=== PATIENT | female | born 1960 | race Caucasian/White ===

== ENCOUNTER → 2021-10-19 07:55 | Outpatient (CLI) | payer BC, SELFPAY ==
[2021-10-19 09:12] LABS: Hemoglobin A1C% w Est Avg Glu 5.7 % (4.0-6.0)
[2021-10-19 09:28] LABS: Alanine Aminotransferase 28 IU/L (<35); Albumin 4.7 g/dL (3.5-5.0); Albumin Globulin Ratio 1.8 (1.0-2.8); Alkaline Phosphatase 52 U/L (38-126); Aspartate Aminotransferase 29 IU/L (14-36); BUN Creatinine Ratio 21.7 (6-22); Bilirubin Total 0.6 mg/dL (0.2-1.3); Blood Urea Nitrogen 13 mg/dL (7-17); Calcium 9.6 mg/dL (8.4-10.2); Carbon Dioxide 30 mmol/L (22-32); Chloride 104 mmol/L (98-107); Cholesterol 222 mg/dL (140-199); Estimated Glomerular Filt Rate > 60.0 mL/min (>60); Globulin 2.6 g/dL (1.7-4.1); Glucose 103 mg/dL (80-110); HDL Cholesterol 65 mg/dL (40-60); HEMOLYSIS < 15 (0-50); LDL Cholesterol Calculated 127 mg/dL (<100); Potassium 4.2 mmol/L (3.4-5.1); Sodium 136 mmol/L (137-145); Total Protein 7.3 g/dL (6.3-8.2); Triglycerides 150 mg/dL (35-150)
[2021-10-19 09:42] LABS: Free T3, Triiodothyronine Free 2.87 pg/mL (2.77-5.27); Free T4, Direct Thyroxine 1.32 ng/dL (0.78-2.19)
[2021-10-19 09:56] LABS: Thyroid Stimulating Hormone 1.11 uIU/mL (0.47-4.68)
== END ==
PROVIDERS: PCP Naturopath; Referring Provider Naturopath; Visit Provider Naturopath
DX: Z00.00 Encounter for general adult medical examination without abnormal findings (principal); E78.5 Hyperlipidemia, unspecified; E03.9 Hypothyroidism, unspecified
CPT/HCPCS: 36415; 80053; 80061; 83036; 84439; 84443; 84481

== ENCOUNTER → 2022-03-13 10:00 | Outpatient (CLI) | payer BC, SELFPAY ==
--- NOTE | 2022-03-13 | DI.RAD.S_ITS ---
PROCEDURE: XR ABDOMEN 1V INDICATIONS: sitz marker study TECHNIQUE: The patient was given a Sitzmark capsule by the orthopedic radiologic technologist on the date of 03/08/2022 and was instructed to swallow the capsule on the day it was given. Patient returned 5 days later for followup imaging. Supine 1 view abdomen radiograph acquired. COMPARISON: None. FINDINGS: Surgical changes and devices: None. Bowel: There are 8 out of 24 Sitzmark rings remaining within the colon, primarily seen distally. Bowel gas pattern is normal. A moderate amount of stool is seen within the colon. Soft tissues: No suspicious abdominal calcifications. Visualized solid organ contours appear normal in size. Pelvic phleboliths are incidentally noted. Bones: No suspicious bony lesions. IMPRESSION: 8 of the markers remain. This is diagnostic of abnormally slow colonic motility. There is a moderate amount of stool seen within the colon, which is consistent with constipation. Dictated by: Taye Finnegan M.D. on 03/14/2022 at 15:42 Approved by: Taye Fninegan M.D. on 03/14/2022 at 15:43
== END ==
PROVIDERS: PCP Naturopath; Referring Provider Internal Medicine Gastroenterology; Visit Provider Internal Medicine Gastroenterology
DX: Z13.811 Encounter for screening for lower gastrointestinal disorder (principal)
CPT/HCPCS: 74018

== ENCOUNTER → 2022-04-29 07:40 | Outpatient (CLI) | payer BC, SELFPAY ==
[2022-04-29 08:13] LABS: Hemoglobin A1C% w Est Avg Glu 5.8 % (4.0-6.0)
[2022-04-29 08:47] LABS: Cholesterol 258 mg/dL (140-199); HDL Cholesterol 59 mg/dL (40-60); LDL Cholesterol Calculated 169 mg/dL (<100); Triglycerides 150 mg/dL (35-150)
[2022-04-29 09:01] LABS: Free T4, Direct Thyroxine 1.08 ng/dL (0.78-2.19)
[2022-04-29 09:14] LABS: Thyroid Stimulating Hormone 0.281 uIU/mL (0.47-4.68)
== END ==
PROVIDERS: PCP Naturopath; Referring Provider Naturopath; Visit Provider Naturopath
DX: E03.9 Hypothyroidism, unspecified (principal); E78.5 Hyperlipidemia, unspecified
CPT/HCPCS: 36415; 80061; 83036; 84439; 84443

== ENCOUNTER → 2022-08-31 07:55 | Outpatient (CLI) | payer BC, SELFPAY ==
[2022-08-31 09:20] LABS: Add Manual Diff / Slide Review NO; Basophils Absolute Auto 0 /uL (0-100); Basophils Percent Auto 1.1 % (0-2); Eosinophils Absolute Auto 100 /uL (0-450); Hematocrit 41.6 % (36-46); Hemoglobin A1C% w Est Avg Glu 5.7 % (4.0-6.0); Lymphocytes Absolute Auto 1900 /uL (1100-4500); Lymphocytes Percent Auto 47.5 % (25-40); Mean Corpuscular HGB Conc 33.5 % (30-36); Mean Corpuscular Hemoglobin 31.6 PG (26-34); Mean Corpuscular Volume 94.2 fL (80-100); Monocytes Absolute Auto 300 /uL (0-900); Monocytes Percent Auto 7.4 % (3-14); Neutrophils Absolute Auto 1700 /uL (1500-7000); Platelet Count 303 X10^3/uL (150-400); Red Blood Cell Count 4.42 X10^6/uL (4.0-5.2); Red Cell Distribution Width 12.8 % (11.6-14.8)
[2022-08-31 09:26] LABS: Alanine Aminotransferase 32 IU/L (<35); Albumin 4.7 g/dL (3.5-5.0); Albumin Globulin Ratio 1.5 (1.0-2.8); Alkaline Phosphatase 49 U/L (38-126); Aspartate Aminotransferase 32 IU/L (14-36); BUN Creatinine Ratio 30.9 (6-22); Bilirubin Total 0.9 mg/dL (0.2-1.3); Blood Urea Nitrogen 17 mg/dL (7-17); Calcium 9.3 mg/dL (8.4-10.2); Carbon Dioxide 27 mmol/L (22-32); Chloride 103 mmol/L (98-107); Cholesterol 262 mg/dL (140-199); Estimated Glomerular Filt Rate > 60 mL/min (>60); Globulin 3.1 g/dL (1.7-4.1); Glucose 102 mg/dL (80-110); HDL Cholesterol 75 mg/dL (40-60); HEMOLYSIS < 15 (0-50); LDL Cholesterol Calculated 152 mg/dL (<100); Potassium 4.1 mmol/L (3.4-5.1); Sodium 139 mmol/L (137-145); Total Protein 7.8 g/dL (6.3-8.2); Triglycerides 177 mg/dL (35-150)
[2022-08-31 09:46] LABS: Free T3, Triiodothyronine Free 3.76 pg/mL (2.77-5.27); Free T4, Direct Thyroxine 1.51 ng/dL (0.78-2.19)
[2022-08-31 09:59] LABS: Thyroid Stimulating Hormone 0.272 uIU/mL (0.47-4.68)
== END ==
PROVIDERS: PCP Naturopath; Referring Provider Naturopath; Visit Provider Naturopath
DX: Z00.00 Encounter for general adult medical examination without abnormal findings; E03.9 Hypothyroidism, unspecified; E78.5 Hyperlipidemia, unspecified
CPT/HCPCS: 36415; 80053; 80061; 83036; 84439; 84443; 84481; 85025

== ENCOUNTER → 2022-09-14 11:26 | Outpatient (CLI) | payer BC, SELFPAY ==
--- NOTE | 2022-09-14 | DI.MG.S_ITS ---
BILATERAL DIGITAL SCREENING MAMMOGRAM 3D/2D WITH CAD: 09/14/2022 CLINICAL: Routine screening. Comparison is made to exam dated: 11/07/2020 mammogram - outside location. Both breasts are heterogeneously dense, which may obscure small masses (category c / 51-75% glandular tissue). Current study was also evaluated with a Computer Aided Detection (CAD) system. There are benign calcifications in the left breast. No significant masses, calcifications, or other findings are seen in either breast. There has been no significant interval change. IMPRESSION: BENIGN There is no mammographic evidence of malignancy. A 1 year screening mammogram is recommended. Based on the Tyrer Cuzick model (a risk assessment model) the patient's lifetime risk is 10.7% and her 10 year risk is 4.7%. According to the ACR, ACS, and NCCN guidelines, an annual breast MRI exam along with mammogram is recommended if the patient's lifetime risk is 20% or greater. This exam was interpreted at Station ID: [id number]. NOTE: For mammograms, a report in lay terms will be sent to the patient. Approximately 15% of breast malignancies will not be visualized mammographically. In the management of a palpable breast mass, a negative mammogram must not discourage biopsy of a clinically suspicious lesion. Electronically Signed By: Fortunato marley/irina:09/14/2022 18:52:57 letter sent: Normal Exam ACR BI-RADS Category 2: Benign Finding(s) 3342F
== END ==
PROVIDERS: PCP Naturopath; Referring Provider Naturopath; Visit Provider Naturopath
DX: Z12.31 Encounter for screening mammogram for malignant neoplasm of breast (principal)
CPT/HCPCS: 77063; 77067

== ENCOUNTER → 2022-12-06 12:16 | Outpatient (CLI) | payer OTHER, SELFPAY ==
[2022-12-06 14:56] LABS: Free T3, Triiodothyronine Free 4.11 pg/mL (2.77-5.27)
[2022-12-06 15:10] LABS: Thyroid Stimulating Hormone 0.527 uIU/mL (0.47-4.68)
== END ==
PROVIDERS: PCP Naturopath; Referring Provider Naturopath; Visit Provider Naturopath
DX: E03.9 Hypothyroidism, unspecified (principal)
CPT/HCPCS: 36415; 84439; 84443; 84481

== ENCOUNTER 2023-07-25 06:55 | Day surgery (SDC) | payer OTHER, SELFPAY ==
[2023-07-25] MEDS: LACTATED RINGERS 1,000 ML 120 ML IV (07:13)
[2023-07-25 07:19] VITALS: BP 114/78; PULSE 79; RESP 18; TEMP 36.3; O2SAT 95; BMI 22.7
--- NOTE | 2023-07-25 07:58 | P.HP_ITS ---
History of Present Illness History of Present Illness Date Patient Seen: 07/25/23 Time Patient Seen: 07:59 Chief complaint: Colonoscopy Narrative: Here for colonoscopy. Family history colon cancer in 2 second-degree relatives. [facility], [facility] Social History household members: spouse Smoking Status: Former smoker Meds Home Medications and Allergies Home Medications Medication Instructions Recorded Confirmed Type estradiol 0.05 mg/24 hr weekly 1 patch transdermal WEEKLY 07/25/23 07/25/23 History transdermal patch levothyroxine 100 mcg tablet 100 mcg PO DAILY 07/25/23 07/25/23 History (Synthroid) Allergies Allergy/AdvReac Type Severity Reaction Status Date / Time Penicillins Allergy Intermediate Hives Verified 07/25/23 07:14 vicryl stitches Allergy Redness of Uncoded 07/25/23 07:15 Skin Review of Systems Review of Systems ROS: Yes All systems reviewed with the patient and are negative except as otherwise documented Exam Vital Signs (past 8 hours): - 07/25/23 07:19 Temperature 97.3 F L Pulse Rate 79 Respiratory Rate 18 Blood Pressure 114/78 Pulse Oximetry 95 Oxygen Delivery Method Room Air Oxygen Delivery Method Room Air Const General: cooperative HENMT Head: normal to inspection Eyes General: appearance normal, both eyes and all related structures Neck Neck: normal visual inspection Chest Chest: normal inspection of the chest Resp Effort & Inspection: normal respiratory effort Cardio Rate: regular rate GI Inspection: normal to inspection Skin General: no rashes or lesions noted Neuro General: patient alert and patient awake Extrem General: normal to inspection and no pedal edema Psych Appearance: grossly normal Assessment & Plan Assessment & Plan narrative: 62-year-old female with chronic constipation and a family history of colon cancer. Colonoscopy is pursued today.
--- NOTE | 2023-07-25 07:59 | PM.PREOP ---
Pre-operative Note Interval Note History & Physical reviewed/Exam performed by Physician: Yes Changes to H&P: No ASA Class (for procedural sedation): II
--- NOTE | 2023-07-25 08:23 | SUR.OPER ---
PEDIATRIC SCOPE TRIED.. SWITCHED TO REGULAR
--- NOTE | 2023-07-25 08:33 | PM.OP.COLON ---
Operative Date/Time/Diagnoses Date of procedure: 07/25/23 Time of procedure: 08:34 Pre-op diagnosis: Family history of colon cancer in a couple of second-degree relatives. Severe constipation. Post-op diagnosis: same Procedure & Clinicians Study performed: Incomplete colonoscopy Same procedure as scheduled: No Indications: Family history of colon cancer and personal history of constipation Surgeon: Victor Manuel Jennings Procedure Notes SCOAP/Timeout: Done Procedure in detail: After the risks and benefits were explained, written and verbal informed consent was obtained. The patient was brought into the procedure room and placed into the left lateral decubitus position. Please see anesthesia note for sedation details. Digital rectal examination was accomplished. The scope was introduced into the patient and advanced under direct visualization to the transverse colon. This depth however was not a certainty. The patient had an exceedingly redundant and tortuous colon. At times I had proximal 100 cm of scope inserted. Despite patient position changes, pressure, and swapping out the pediatric scope for an adult colonoscope we could not overcome this to obtain a depth of cecum. The scope was therefore withdrawn to evaluate the left colon. Comprehensive imaging was accomplished throughout the rectum including the dentate line. The colon was decompressed, the scope was then removed from the patient who tolerated the procedure well. Pediatric and adult colonoscope Bowel prep adequate Scope withdrawal time: Not applicable Sedation minutes: 31 Specimen(s): none sent Complications: none Impression: The patient had an exceedingly redundant and tortuous colon. We could not overcome the looping and redundancy despite pressure, stiffening ke, position change, and a scope change as above. I suspect I was somewhere in the transverse colon. I did not appreciate any overt pathology in the left colon. Endoscopic diagnosis 1. Severe colon redundancy 2. Tortuous colon 3. Incomplete colonoscopy Post-procedure Plan for aftercare: 1. I will touch base with the office staff and try to arrange for a virtual colonography 2. Contingent on the findings, future screening should probably be with balloon assisted colonoscopy versus virtual colonoscopy. Disposition: PACU
[2023-07-25 08:34] VITALS: BP 103/72; PULSE 77; RESP 12; TEMP 36.2; O2SAT 95
[2023-07-25 08:39] VITALS: BP 106/79; PULSE 70; RESP 15; O2SAT 97
[2023-07-25 08:44] VITALS: BP 116/82; PULSE 66; RESP 12; TEMP 36.1; O2SAT 97
[2023-07-25 08:57] VITALS: BP 108/71; PULSE 67; RESP 11; TEMP 36.2; O2SAT 99
== END 2023-07-25 09:12 | disposition home or self-care (01) ==
PROVIDERS: PCP Naturopath; Referring Provider Internal Medicine Gastroenterology; Visit Provider Internal Medicine Gastroenterology
PROC: 0DJD8ZZ Inspection of Lower Intestinal Tract, Via Natural or Artificial Opening Endoscopic (ICD-10-PCS; CPT 45378; principal; 2023-07-25 08:00)
DX: K59.00 Constipation, unspecified (principal); Z53.09 Procedure and treatment not carried out because of other contraindication
CPT/HCPCS: 45378; J2704

== ENCOUNTER → 2023-09-13 08:59 | Outpatient (CLI) | payer OTHER, SELFPAY ==
[2023-09-13 10:30] LABS: Add Manual Diff / Slide Review NO; Basophils Absolute Auto 0 /uL (0-100); Basophils Percent Auto 0.8 % (0-2); Eosinophils Absolute Auto 100 /uL (0-450); Eosinophils Percent Auto 1.6 % (2-4); Hemoglobin 13.8 g/dL (12.0-16.0); Lymphocytes Absolute Auto 1900 /uL (1100-4500); Lymphocytes Percent Auto 42.6 % (25-40); Mean Corpuscular HGB Conc 33.6 % (30-36); Mean Corpuscular Volume 92.5 fL (80-100); Monocytes Absolute Auto 400 /uL (0-900); Monocytes Percent Auto 8.2 % (3-14); Neutrophils Absolute Auto 2100 /uL (1500-7000); Neutrophils Percent Auto 46.8 % (50-75); Platelet Count 285 X10^3/uL (150-400); Red Blood Cell Count 4.44 X10^6/uL (4.0-5.2); Red Cell Distribution Width 13.2 % (11.6-14.8); White Blood Cell Count 4.5 X10^3/uL (4.5-11.0)
[2023-09-13 10:43] LABS: Alanine Aminotransferase 25 IU/L (<35); Albumin 4.4 g/dL (3.5-5.0); Albumin Globulin Ratio 1.6 (1.0-2.8); Alkaline Phosphatase 59 U/L (38-126); Aspartate Aminotransferase 28 IU/L (14-36); Blood Urea Nitrogen 16 mg/dL (7-17); Calcium 9.7 mg/dL (8.4-10.2); Carbon Dioxide 28 mmol/L (22-32); Chloride 100 mmol/L (98-107); Cholesterol 274 mg/dL (140-199); Estimated Glomerular Filt Rate > 60 mL/min (>60); Globulin 2.8 g/dL (1.7-4.1); Glucose 95 mg/dL (80-110); HDL Cholesterol 79 mg/dL (40-60); HEMOLYSIS < 15 (0-50); LDL Cholesterol Calculated 167 mg/dL (<100); Potassium 4.2 mmol/L (3.4-5.1); Sodium 136 mmol/L (137-145); Total Protein 7.2 g/dL (6.3-8.2); Triglycerides 142 mg/dL (35-150)
[2023-09-13 10:44] LABS: Hemoglobin A1C% w Est Avg Glu 5.7 % (4.0-6.0)
[2023-09-13 11:18] LABS: Thyroid Stimulating Hormone 0.824 uIU/mL (0.47-4.68)
[2023-09-13 11:34] LABS: Free T3, Triiodothyronine Free 3.31 pg/mL (2.77-5.27); Free T4, Direct Thyroxine 1.35 ng/dL (0.78-2.19)
== END ==
PROVIDERS: PCP Naturopath; Referring Provider Naturopath; Visit Provider Naturopath
DX: Z00.00 Encounter for general adult medical examination without abnormal findings (principal); E03.9 Hypothyroidism, unspecified; E78.5 Hyperlipidemia, unspecified
CPT/HCPCS: 36415; 80053; 80061; 83036; 84439; 84443; 84481; 85025

== ENCOUNTER → 2023-09-22 | Outpatient (CLI) | payer OTHER, SELFPAY ==
--- NOTE | 2023-09-22 15:02 | DI.MG.S_ITS ---
BILATERAL DIGITAL SCREENING MAMMOGRAM 3D/2D WITH CAD: 09/22/2023 CLINICAL: Routine screening. Comparison is made to exams dated: 09/14/2022 mammogram - [facility] and 11/07/2020 mammogram - outside location. Both breasts are heterogeneously dense, which may obscure small masses (category c / 51-75% glandular tissue). Current study was also evaluated with a Computer Aided Detection (CAD) system. No significant masses, calcifications, or other findings are seen in either breast. IMPRESSION: NEGATIVE There is no mammographic evidence of malignancy. A 1 year screening mammogram is recommended. Based on the Tyrer Cuzick model (a risk assessment model) the patient's lifetime risk is 10.4% and her 10 year risk is 4.7%. According to the ACR, ACS, and NCCN guidelines, an annual breast MRI exam along with mammogram is recommended if the patient's lifetime risk is 20% or greater. This exam was interpreted at Station ID: [id number]. NOTE: For mammograms, a report in lay terms will be sent to the patient. Approximately 15% of breast malignancies will not be visualized mammographically. In the management of a palpable breast mass, a negative mammogram must not discourage biopsy of a clinically suspicious lesion. Electronically Signed By: Xochitl Quinones M.D., PH.D eb/:09/23/2023 22:59:35 letter sent: Normal Exam ACR BI-RADS Category 1: Negative 3341F
== END ==
PROVIDERS: PCP Naturopath; Referring Provider Naturopath; Visit Provider Naturopath
DX: Z12.31 Encounter for screening mammogram for malignant neoplasm of breast (principal); R92.333 Mammographic heterogeneous density, bilateral breasts
CPT/HCPCS: 77063; 77067

== ENCOUNTER → 2024-03-14 11:33 | Outpatient (CLI) | payer OTHER, SELFPAY ==
--- NOTE | 2024-03-14 11:36 | DI.RAD.S_ITS ---
PROCEDURE: XR CHEST 2V INDICATIONS: ABNORMAL FINDINGS TECHNIQUE: 2 views of the chest were acquired. COMPARISON: None. FINDINGS: Surgical changes and devices: Clips are seen within the neck. Lungs and pleura: Bibasilar atelectasis. No pleural effusions or pneumothorax. Mediastinum: Mediastinal contours are normal. Heart size is normal. Bones and chest wall: No suspicious bony abnormalities. IMPRESSION: Bibasilar atelectasis. Dictated by: Tadeo Hewitt M.D. on 03/14/2024 at 17:15 Approved by: Tadeo Hewitt M.D. on 03/14/2024 at 17:18
== END ==
PROVIDERS: PCP Naturopath; Referring Provider Naturopath; Visit Provider Naturopath
DX: J98.11 Atelectasis (principal); R93.89 Abnormal findings on diagnostic imaging of other specified body structures
CPT/HCPCS: 71046

== ENCOUNTER → 2024-08-01 08:00 | Outpatient (CLI) | payer OTHER, SELFPAY ==
[2024-08-01 10:15] LABS: Cholesterol 238 mg/dL (140-199); HDL Cholesterol 88 mg/dL (40-60); LDL Cholesterol Calculated 125 mg/dL (<100); Triglycerides 127 mg/dL (35-150)
== END ==
PROVIDERS: PCP Naturopath; Referring Provider Internal Medicine Cardiovascular Disease; Visit Provider Internal Medicine Cardiovascular Disease
DX: E78.5 Hyperlipidemia, unspecified (principal)
CPT/HCPCS: 36415; 80061

== ENCOUNTER → 2024-08-24 16:09 | Outpatient (CLI) | payer OTHER, SELFPAY ==
--- NOTE | 2024-08-24 16:10 | DI.ECHO.S_ITS ---
[facility]+ [facility] : : [address] : : [place] : : [id number] : : Phone: [phone] Echocardiogram Report + + :Name: ANAIS WHITTAKER Study Date: 08/24/2024 Height: 67 in : :Hospital ReadingLocation: Weight: 138 lb : : Gender: Female BSA: 1.7 m2 : :: 1960 Age: 63 yrs BP: 111/77 mmHg: :Reason For Study: ATRIAL FIBRILLATION : :Ordering Physician: ÁNGEL, : :BRYAN Performed By: Ranjit Still : :Referring: BRYAN ALMENDAREZ : + + Interpretation Summary 1) Normal left ventricular thickness, size, wall motion, and systolic function (EF 55-60%). 2) Normal right ventricular size and function. 3) No significant valvular abnormalities. 4) No prior Echo available for comparison. Procedure: A two-dimensional transthoracic echocardiogram with color flow and Doppler was performed. The study quality was technically good. There is no prior echocardiogram noted for this patient. The patient was in normal sinus rhythm during the exam. Left Ventricle: The left ventricle is normal in size. There is normal left ventricular wall thickness. There is no ventricular septal defect visualized. The ejection fraction is estimated to be 55-60%. There are no focal wall motion abnormalities. Right Ventricle: The right ventricle is normal in size and function. Atria: The left atrial size is normal. Right atrial size is normal. There is no Doppler evidence for an interatrial shunt. Mitral Valve: The mitral valve leaflets appear normal. There is no evidence of stenosis, fluttering, or prolapse. There is trace mitral regurgitation. Aortic Valve: The aortic valve is trileaflet. The aortic valve opens well. The aortic valve is mildly calcified. There is no aortic valve stenosis. No aortic regurgitation is present. Tricuspid Valve: The tricuspid valve leaflets are thin and pliable. There is mild tricuspid regurgitation. The right ventricular systolic pressure is estimated to be at least 34 mmHg based on an estimated right atrial pressure of 8 mm Hg. Pulmonic Valve: The pulmonic valve leaflets are thin and pliable; valve motion is normal. There is no pulmonic valvular regurgitation. Great Vessels: The aortic root is normal size. The dimensions of the ascending aorta are normal. The pulmonary artery is normal size. The IVC is dilated (diameter is greater than 2.1 cm) yet it collapses greater than 50% with a sniff. This suggests a right atrial pressure of 8 mm Hg. Pericardium/ Pleura There is no pericardial effusion. There is no pleural effusion. MMode/2D Measurements & Calculations LVIDd: 4.6 cm LVOT diam: 2.0 cm LVIDs: 2.4 cm Ao root diam: 2.9 cm FS: 48.0 % asc Aorta Diam: 3.1 cm EPSS: 0.35 cm IVSd: 0.71 cm LVPWd: 0.76 cm LV dominguez. diameter/BSA (cm/m^2): 2.7 LV sys. diameter/BSA (cm/m^2): 1.4 LA A2 area: 16.8 cm2 RA long axis: 4.3 cm LA A4 area: 16.1 cm2 RA area: 14.1 cm2 LA length (vol): 5.0 cm RA vol: 38.7 ml LA vol: 45.6 ml RA : 22.4 ml/m2 LA vol index: 26.4 ml/m2 IVC diam: 2.3 cm RVD1 (basal): 3.5 cm RVD2 (mid): 2.6 cm TAPSE: 2.7 cm Doppler Measurements & Calculations Ao V2 max: 117.4 cm/sec LVOT Max Dagoberto: 76.4 cm/sec Ao V2 mean: 91.9 cm/sec LV V1 max P.3 mmHg Ao max P.5 mmHg LV V1 VTI: 17.7 cm Ao mean P.5 mmHg RABIA(I,D): 2.1 cm2 Ao V2 VTI: 27.3 cm RABIA(V,D): 2.1 cm2 sev ratio: 0.65 RABIA indexed to BSA (cm^2/m^2): 1.2 MV E max dagoberto: 65.4 cm/sec TR max dagoberto: 253.6 cm/sec MV A max dagoberto: 52.3 cm/sec TR max P.7 mmHg MV E/A: 1.2 PA V2 max: 64.7 cm/sec Med Peak E' Dagoberto: 9.1 cm/sec PA V2 mean: 44.8 cm/sec E/E' med: 7.2 PA mean P.89 mmHg Lat Peak E' Dagoberto: 10.8 cm/sec PA pr(Accel): 32.8 mmHg E/E' lat: 6.1 E/e' average: 6.6 MV dec time: 0.24 sec SV(LVOT): 57.8 ml Reading Physician:05:29 PM
== END ==
PROVIDERS: PCP Naturopath; Referring Provider Internal Medicine Cardiovascular Disease; Visit Provider Internal Medicine Cardiovascular Disease
DX: I48.0 Paroxysmal atrial fibrillation (principal); I07.1 Rheumatic tricuspid insufficiency
CPT/HCPCS: 93306

== ENCOUNTER → 2024-09-27 10:12 | Outpatient (CLI) | payer OTHER, SELFPAY | PROVIDERS: PCP Family Medicine; Referring Provider Family Medicine; Visit Provider Family Medicine | DX: I48.91 Unspecified atrial fibrillation (principal) | CPT/HCPCS: 36415; 83695 ==

== ENCOUNTER → 2024-10-01 13:13 | Outpatient (CLI) | payer OTHER, SELFPAY ==
--- NOTE | 2024-10-01 13:14 | DI.MG.S_ITS ---
BILATERAL DIGITAL SCREENING MAMMOGRAM 3D/2D WITH CAD: 10/01/2024 CLINICAL: Routine screening. Comparison is made to exams dated: 09/22/2023 mammogram, 09/14/2022 mammogram - [facility], and 11/07/2020 mammogram - outside location. The breasts are heterogeneously dense, which may obscure small masses (category c / 51-75% glandular tissue). Current study was also evaluated with a Computer Aided Detection (CAD) system. No significant masses, calcifications, or other findings are seen in either breast. There has been no significant interval change. IMPRESSION: NEGATIVE There is no mammographic evidence of malignancy. A 1 year screening mammogram is recommended. Based on the Tyrer Cuzick model (a risk assessment model) the patient's lifetime risk is 10.1% and her 10 year risk is 4.7%. According to the ACR, ACS, and NCCN guidelines, an annual breast MRI exam along with mammogram is recommended if the patient's lifetime risk is 20% or greater. This exam was interpreted at Station ID: [id number]. NOTE: For mammograms, a report in lay terms will be sent to the patient. Approximately 15% of breast malignancies will not be visualized mammographically. In the management of a palpable breast mass, a negative mammogram must not discourage biopsy of a clinically suspicious lesion. Electronically Signed By: Fortunato marley/irina:10/01/2024 16:46:03 letter sent: Normal Exam ACR BI-RADS Category 1: Negative
== END ==
PROVIDERS: PCP Family Medicine; Referring Provider Family Medicine; Visit Provider Family Medicine
DX: Z12.31 Encounter for screening mammogram for malignant neoplasm of breast (principal); R92.333 Mammographic heterogeneous density, bilateral breasts
CPT/HCPCS: 77063; 77067

== ENCOUNTER → 2025-08-13 12:13 | Outpatient (CLI) | payer MEDICARE, BC, SELFPAY ==
--- NOTE | 2025-08-13 12:14 | DI.RAD.S_ITS ---
PROCEDURE: XR DEXA AXIAL SKELETON INDICATIONS: Bone density COMPARISON: None. FINDINGS: Lumbar Spine: Bone mineral density 1.190 g/cm2, T score 1.3. Left Femoral Neck: Bone mineral density 0.704 g/cm2, T score -1.3. Left Hip: Bone mineral density 0.874 g/cm2, T score -0.6. Fracture Risk Calculation (when applicable): 10-year fracture risk of a major osteoporotic fracture 8.2 percent and of a hip fracture 0.8 percent. (T score greater or equal to -1.0 to: NORMAL) (T score from -1.1 to -2.4: OSTEOPENIA) (T score less than or equal to -2.5: OSTEOPOROSIS) IMPRESSION: Osteopenia. Follow-up guidelines as follows: Osteoporosis: Consider a repeat DEXA and Vertebral Fracture Assessment (VFA) exam in 2 years or sooner if medically necessary, to reassess this patient's status. Osteopenia: Consider a repeat DEXA in 2-3 years to reassess this patient's status, or if there is a new clinical indication. Normal: Consider a repeat DEXA in 5 years or sooner, or if there is a new clinical indication. All treatment decisions require clinical judgment and consideration of individual patient factors, including patient preferences, comorbidities, previous drug use, risk factors not captured in the FRAX model (e.g., frailty, falls, vitamin D deficiency, increased bone turnover, interval significant decline in bone density ) and possible under- or over-estimation of fracture risk by FRAX. In addition, the NOF Guide recommends that FDA-approved medical therapies be considered in postmenopausal women and men age >= 50 years with a: * Hip or vertebral (clinical or morphometric) fracture * T-score of <=-2.5 at the spine or hip * Ten-year fracture probability by FRAX of >= 3% for hip fracture or >=20% for major osteoporotic fracture. Dictated by: Jaiden Woods M.D. on 08/13/2025 at 17:40 Approved by: Jaiden Woods M.D. on 08/13/2025 at 17:40
== END ==
LOC: RAD 12:14
PROVIDERS: PCP Family Medicine; Referring Provider Family Medicine; Visit Provider Family Medicine
DX: M85.89 Other specified disorders of bone density and structure, multiple sites (principal)
CPT/HCPCS: 77080

== ENCOUNTER → 2025-08-20 06:59 | Outpatient (CLI) | payer MEDICARE, BC, SELFPAY ==
[2025-08-20 08:17] LABS: Add Manual Diff / Slide Review NO; Hematocrit 42.9 % (36-46); Hemoglobin 14.6 g/dL (12.0-16.0); Lymphocytes Absolute Auto 1900 /uL (1100-4500); Mean Corpuscular HGB Conc 34.0 % (30-36); Mean Corpuscular Hemoglobin 31.9 PG (26-34); Mean Corpuscular Volume 93.8 fL (80-100); Platelet Count 280 X10^3/uL (150-400)
[2025-08-20 08:37] LABS: Alanine Aminotransferase 46 IU/L (<35); Albumin 4.8 g/dL (3.5-5.0); Albumin Globulin Ratio 1.8 (1.0-2.8); Alkaline Phosphatase 52 U/L (38-126); Blood Urea Nitrogen 16 mg/dL (7-17); Calcium 9.3 mg/dL (8.4-10.2); Carbon Dioxide 28 mmol/L (22-32); Chloride 102 mmol/L (98-107); Cholesterol 213 mg/dL (140-199); Estimated Glomerular Filt Rate > 60 mL/min (>60); Globulin 2.6 g/dL (1.7-4.1); Glucose 105 mg/dL (70-99); HDL Cholesterol 98 mg/dL (40-60); HEMOLYSIS 22 (0-50); Potassium 4.4 mmol/L (3.4-5.1); Sodium 137 mmol/L (137-145); Total Protein 7.4 g/dL (6.3-8.2); Triglycerides 139 mg/dL (35-150)
[2025-08-20 09:05] LABS: TSH w/ Reflex to FT4 1.06 uIU/mL (0.47-4.68)
== END ==
PROVIDERS: PCP Family Medicine; Referring Provider Family Medicine; Visit Provider Family Medicine
DX: E78.5 Hyperlipidemia, unspecified (principal); E03.9 Hypothyroidism, unspecified
CPT/HCPCS: 36415; 80053; 80061; 84443; 85025